=== PATIENT | male | born 1980 | race Caucasian/White ===

== ENCOUNTER 2023-12-12 20:09 | Emergency (ER) | payer BC ==
[2023-12-12] MEDS ORDERED: Sodium Chloride 0.9% 10 ML Syringe FLUSH PRN ×2 (20:37)
[2023-12-12] MEDS: Sodium Chloride 0.9% 500 ML IV ONE (20:44)
[2023-12-12 20:50] LABS: BASOPHILS PERCENT AUTO 0.5 % (0.3-3.8); EOSINOPHILS ABSOLUTE AUTO 0.2 x10-3/uL (0.0-0.6); EOSINOPHILS PERCENT AUTO 3.4 % (0.1-6.8); HEMATOCRIT 44.5 % (38.3-50.1); HEMOGLOBIN 14.9 g/dL (12.9-17.7); LYMPHOCYTES ABSOLUTE AUTO 1.4 x10-3/uL (0.5-4.5); LYMPHOCYTES PERCENT AUTO 21.9 % (15.8-45.3); MEAN CORPUSCULAR HEMOGLOBIN 29.4 pg (27.0-33.3); MEAN CORPUSCULAR HGB CONC 33.6 g/dL (28.7-35.3); MEAN CORPUSCULAR VOLUME 87.4 fL (80.8-98.7); MONOCYTES ABSOLUTE AUTO 0.6 x10-3/uL (0.0-1.2); MONOCYTES PERCENT AUTO 9.4 % (5.5-15.2); NEUTROPHILS ABSOLUTE AUTO 4.1 x10-3/uL (1.7-6.9); NEUTROPHILS PERCENT AUTO 64.8 % (40.3-71.8); PLATELET COUNT,PLT 191 x10(3)uL (117-477); RED BLOOD CELL COUNT 5.09 x10(6)uL (3.90-5.90); RED CELL DISTRIBUTION WIDTH 13.5 % (12.4-15.0); WHITE BLOOD CELL COUNT,WBC 6.3 x10-3/uL (3.2-10.1)
[2023-12-12 20:52] LABS: BLOOD UREA NITROGEN,BUN 14 mg/dL (7-18); CALCIUM 8.7 mg/dL (8.6-10.2); CARBON DIOXIDE,CO2 27 mmol/L (21-32); CHLORIDE,CL 100 mmol/L (100-110); CREATININE 1.4 mg/dL (0.70-1.30); ESTIMATED GFR 64 mL/min (>60); GLUCOSE RANDOM 150 mg/dL (80-116); POTASSIUM,K 3.5 mmol/L (3.5-5.3); SODIUM,NA 139 mmol/L (135-145)
[2023-12-12 20:58] LABS: A/G RATIO 1.3; ALANINE AMINOTRANSFERASE,ALT 31 U/L (12-36); ALBUMIN 4.1 g/dL (3.5-5.2); ALKALINE PHOSPHATASE 102 IU/L (56-112); ASPARTATE AMNIOTRANSFERASE,AST 21 IU/L (5-25); BILIRUBIN TOTAL 0.7 mg/dL (0.1-1.3); PROTEIN TOTAL,TP 7.3 g/dL (6.0-8.0)
[2023-12-12 20:59] LABS: INR 0.89 (1.00-1.24); PROTHROMBIN TIME 9.4 sec (9.0-11.1); PTT,PARTIAL THROMBOPLSTIN TIME 26.5 SECONDS (24.4-33.2)
[2023-12-12] MEDS: Ketorolac 30 MG/ML SDV IVPUSH ONE (21:03)
[2023-12-12] MEDS: Sodium Chloride 0.9% 1,000 ML IV ONE (21:04)
[2023-12-12] MEDS: Labetalol 20 MG/4 ML Syringe IVPUSH ONE (21:39)
[2023-12-12] MEDS: Iopamidol 755 Mg/ML 100 ML Bottle IV ONE (21:59)
[2023-12-12] MEDS: Enalaprilat 1.25 MG/ML SDV IVPUSH ONE (22:56)
[2023-12-12 23:39] VITALS: BP 152/99; PULSE 76
== END 2023-12-12 23:34 | disposition home or self-care (01) ==
LOC: FB.ED 20:09
DX: R20.0 Anesthesia of skin (principal); R51.9 Headache, unspecified; R03.0 Elevated blood-pressure reading, without diagnosis of hypertension; F17.210 Nicotine dependence, cigarettes, uncomplicated
CPT/HCPCS: 36415; 70450; 70496; 70498; 80053; 82947; 84484; 85025; 85610; 85730; 93005; 96361; 96374; 96375; 99284-25; J1885; J1920; J7030; J7040; Q9967